=== PATIENT | male | born 1970 | race Caucasian/White ===

== ENCOUNTER 2017-04-15 05:29 | Inpatient (IN) | payer OTHER ==
[2017-04-15 06:31] LABS: Basophils % (Auto) 0.5 % (0.0-1.8); Eosinophils % (Auto) 1.1 % (0.0-4.3); Hematocrit 40.5 % (35.5-45.6); Hemoglobin 13.4 gm/dl (11.8-15.2); Mean Corpuscular HGB Conc 33 % (32-34); Mean Corpuscular Volume 76 fl (84-94); Platelet Count 274 K/mm3 (140-440); Red Blood Count 5.36 M/mm3 (3.65-5.03); Red Cell Distribution Width 17.4 % (13.2-15.2)
[2017-04-15] MEDS ORDERED: NITRO-BID 2% TP ONE (06:32)
[2017-04-15] MEDS ORDERED: MORPHINE IV ONE (06:32)
[2017-04-15] MEDS ORDERED: ZOFRAN IV ONE (06:32)
[2017-04-15] MEDS ORDERED: ASPIRIN PO ONE (06:32)
[2017-04-15 06:35] LABS: Mean Corpuscular Hemoglobin 25 pg (28-32)
[2017-04-15] MEDS ORDERED: NACL ONE (06:43)
[2017-04-15 06:46] LABS: Anion Gap 21 mmol/L; Blood Urea Nitrogen 14 mg/dL (9-20); Calcium 9.7 mg/dL (8.4-10.2); Carbon Dioxide 22 mmol/L (22-30); Chloride 100.7 mmol/L (98-107); Glucose 129 mg/dL (75-100); Potassium 4.1 mmol/L (3.6-5.0); Sodium 140 mmol/L (137-145)
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
[2017-04-15 08:54] LABS: Albumin 4.1 g/dL (3.9-5); Bilirubin,Direct 0.4 mg/dL (0-0.2); Bilirubin,Indirect 0.4 mg/dL; Bilirubin,Total 0.8 mg/dL (0.1-1.2); Total Protein 8.4 g/dL (6.3-8.2)
--- NOTE | 2017-04-15 09:13 | XRay Report ---
ROUTINE CHEST, TWO VIEWS: SOB, pleuritic chest pain. PA and lateral views demonstrate the heart and mediastinal contour to be of normal size and shape. The lungs are clear and fully expanded and the soft tissues and bony structures are normal. IMPRESSION: Normal study.
[2017-04-15 09:20] LABS: Bilirubin,Urine NEG (Negative); Blood,Urine NEG (Negative); Ketones,Urine NEG (Negative); Leukocyte Esterase,Urine NEG (Negative); Mucus,Urine 3+ /HPF; Nitrite,Urine NEG (Negative); Protein,Urine <15 mg/dL mg/dL (Negative); Urobilinogen,Urine < 2.0 mg/dL (<2.0); WBC,Urine < 1.0 /HPF (0.0-6.0)
--- NOTE | 2017-04-15 10:13 | Cat Scan Report ---
CTA chest, abdomen, pelvis: Pleuritic chest pain, SOB, nausea and vomiting with abnormal pancreas enzymes. Following IV contrast administration images are performed transversely through the chest using pulmonary embolus protocol. Transverse images are continued through the abdomen and pelvis. AP and lateral 2-D reconstruction chest and abdominal images are obtained in addition to 3-D chest image. Opacification of the pulmonary arteries is not optimal but adequate to exclude any obvious filling defects. The pulmonary veins and thoracic aorta are well-opacified and appear unremarkable. No filling defects identified in the cardiac chambers. No hilar or mediastinal adenopathy. The central airways are patent. There are bilateral bibasilar areas of scarring or linear atelectasis. The remainder the lungs are clear. No effusion nor pleural pathology identified. Images through the lower chest and abdomen demonstrate the presence of a non-reduced hiatus hernia surrounded by a large volume of fat which appears to be extending into the chest through a large posterior diaphragmatic defect. Spleen are unremarkable as is the remainder of the stomach. The gallbladder is filled with a mild increased degree of density with what appear to be a couple of cysts tiny gas density bubbles in the proximal gallbladder. The gallbladder is not otherwise remarkable. The CBD has a normal diameter. Images of the pancreas are unremarkable. Evaluation of renal calculi is difficult do to the presence of contrast. No renal nor adrenal abnormalities noted. The bowel is unopacified but appears grossly unremarkable. There may be some diverticula a in the ascending colon. The appendix is visualized and unremarkable. No inflammatory abdominal findings and fluid collections nor free air. Impressions: 1. No pulmonary embolus. 2. Bibasilar atelectasis/scarring. 3. Large diaphragmatic hernia with apparent herniation of mesenteric fat surrounding the gastric hernia. 4. Unexplained gas in gallbladder. Possibility of inflammation is raised. Evaluation with ultrasound may be helpful.
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
[2017-04-15] MEDS ORDERED: MILK OF MAGNESIA PO PRN (13:18)
[2017-04-15] MEDS ORDERED: ZOFRAN IV PRN (13:18)
[2017-04-15] MEDS ORDERED: TYLENOL PO PRN (13:18)
[2017-04-15] MEDS ORDERED: DULCOLAX PR PRN (13:18)
[2017-04-15] MEDS ORDERED: PROVENTIL IH PRN (13:18)
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
--- NOTE | 2017-04-15 14:41 | Ultrasound Report ---
FINAL REPORT EXAM: US ABDOMEN LIMITED HISTORY: elevated LFTs, elevated lipase TECHNIQUE: Grayscale and color doppler ultrasound imaging of the right upper quadrant was performed. PRIORS: None. FINDINGS: Liver: The liver is normal in echogenicity. No focal hepatic lesions or intrahepatic biliary ductal dilation. Gallbladder/Biliary system: Cholelithiasis is seen. No gallbladder wall thickening or pericholecystic fluid. The common bile duct measures 2.4 millimeters. Right kidney: The right kidney is normal in echogenicity without hydronephrosis, cyst, mass or calcification. The right kidney measures 10.2 x 6.0 x 4.9 centimeters. Pancreas: The visualized portions of the pancreas demonstrate no focal lesion. Aorta/IVC: The visualized portions of the abdominal aorta and IVC are normal in caliber. Free fluid: None. IMPRESSION: Cholelithiasis without evidence of acute cholecystitis.
--- NOTE | 2017-04-16 06:57 | Event Note ---
Date: 04/16/17 u/s does not suggest acute cholecystitis, afebrile, HIDA today, if GB visualizes , patient can be feed and sent home and followed as outpatient.
[2017-04-16] MEDS ORDERED: WATER FOR INJ (PF) 10 ML ONE (08:45)
[2017-04-16] MEDS ORDERED: KINEVAC IV ONE ×2 (08:45→09:00)
[2017-04-16] MEDS ORDERED: WATER FOR INJ (PF) IV ONE (09:00)
--- NOTE | 2017-04-16 11:23 | Nuclear Medicine Report ---
Hepatobiliary scan with ejection fraction. History: Abdominal pain. Findings: Hepatic, gallbladder, and small bowel activity are normal. The ejection fraction was performed after the intravenous injection of 1.9 mcg of Kinevac. The ejection fraction measures 19% which is abnormally low. Impression: Abnormal ejection fraction consistent with biliary dyskinesia versus chronic cholecystitis.
--- NOTE | 2017-04-16 11:24 | Event Note ---
Date: 04/16/17 HIDA scan demonstrates promt visualization of GB, passage of contrast into duodenum, patient does not have accute cholecystitis, question of air in gallbladder wall represents cholesterol stones, patient can be fed and sent home , I can f/u as outpatient to address biliary dyskinesia, (EF 19 %), not an emergency- elective lap aiden.No need for antibiotics, lipase elevation noted but I am unclear as to etiology of it. A low fat diet is a good idea for 2 weeks if patient will comply.
--- NOTE | 2017-04-16 12:52 | Progress Note ---
Assessment and Plan Assessment and plan: Right upper quadrant abdominal pain. CT abdomen suggested gall bladder disease. HIDA scan showed dyskinesia. Patient evaluated by surgeon. Biliary diskinesia. Follow with Dr. Ramirez, Surgeon as an outpatient Acute pancreatitis with elevated lippase level. repeat lipase level. iv fluids, analgesics Transaminitis. Repeat LFT. Obtain alcohol level Obesity. I counseled him on diet and exercise to lose weight Full code status DVT prophylaxis with SCDs History Interval history: Right upper quadrant abdominal pain, no fever Hospitalist Physical - Physical exam Narrative exam: Gen Appearance: No acute distress, obese HEENT: normocephalic, atraumatic Neck: supple, no JVD Lungs: clear to auscultation bilaterally, no crackles or wheezes Heart: S1 and S2 regular, no murmurs or gallop Abdomen: Soft , tender RUQ, no rebound tenderness, no guarding. Normal bowel sounds Extremity: No edema, clubbing or cyanosis Neuro : Awake, alert, oriented x 3, moves all extremities - Constitutional Vitals: Temp Pulse Resp BP Pulse Ox 98.4 F 78 15 119/86 98 04/16/17 06:52 04/16/17 06:52 04/16/17 06:52 04/16/17 06:52 04/16/17 10:00 General appearance: Present: no acute distress, well-nourished Results - Labs CBC & Chem 7: 04/16/17 12:23 04/16/17 14:33 Labs: Laboratory Last Values WBC 11.0 K/mm3 (4.5-11.0) 04/15/17 06:13 RBC 5.36 M/mm3 (3.65-5.03) H 04/15/17 06:13 Hgb 13.4 gm/dl (11.8-15.2) 04/15/17 06:13 Hct 40.5 % (35.5-45.6) 04/15/17 06:13 MCV 76 fl (84-94) L 04/15/17 06:13 MCH 25 pg (28-32) L 04/15/17 06:13 MCHC 33 % (32-34) 04/15/17 06:13 RDW 17.4 % (13.2-15.2) H 04/15/17 06:13 Plt Count 274 K/mm3 (140-440) 04/15/17 06:13 Lymph % (Auto) 16.4 % (13.4-35.0) 04/15/17 06:13 [place] % (Auto) 9.1 % (0.0-7.3) H 04/15/17 06:13 Eos % (Auto) 1.1 % (0.0-4.3) 04/15/17 06:13 Baso % (Auto) 0.5 % (0.0-1.8) 04/15/17 06:13 Lymph # 1.8 K/mm3 (1.2-5.4) 04/15/17 06:13 [place] # 1.0 K/mm3 (0.0-0.8) H 04/15/17 06:13 Eos # 0.1 K/mm3 (0.0-0.4) 04/15/17 06:13 Baso # 0.1 K/mm3 (0.0-0.1) 04/15/17 06:13 Seg Neutrophils % 72.9 % (40.0-70.0) H 04/15/17 06:13 Seg Neutrophils # 8.0 K/mm3 (1.8-7.7) H 04/15/17 06:13 Sodium 140 mmol/L (137-145) 04/15/17 06:13 Potassium 4.1 mmol/L (3.6-5.0) 04/15/17 06:13 Chloride 100.7 mmol/L (98-107) 04/15/17 06:13 Carbon Dioxide 22 mmol/L (22-30) 04/15/17 06:13 Anion Gap 21 mmol/L 04/15/17 06:13 BUN 14 mg/dL (9-20) 04/15/17 06:13 Creatinine 1.0 mg/dL (0.8-1.5) 04/15/17 06:13 Estimated GFR > 60 ml/min 04/15/17 06:13 BUN/Creatinine Ratio 14.00 % 04/15/17 06:13 Glucose 129 mg/dL (75-100) H 04/15/17 06:13 Calcium 9.7 mg/dL (8.4-10.2) 04/15/17 06:13 Total Bilirubin 0.80 mg/dL (0.1-1.2) 04/15/17 06:13 Direct Bilirubin 0.4 mg/dL (0-0.2) H 04/15/17 06:13 Indirect Bilirubin 0.4 mg/dL 04/15/17 06:13 AST 111 units/L (5-40) H 04/15/17 06:13 ALT 72 units/L (7-56) H 04/15/17 06:13 Alkaline Phosphatase 176 units/L (35-129) H 04/15/17 06:13 Troponin T < 0.010 ng/mL (0.00-0.029) 04/15/17 11:27 Total Protein 8.4 g/dL (6.3-8.2) H 04/15/17 06:13 Albumin 4.1 g/dL (3.9-5) 04/15/17 06:13 Albumin/Globulin Ratio 1.0 % 04/15/17 06:13 Lipase 1962 units/L (13-60) H 04/15/17 06:13 Urine Color [place] (Yellow) 04/15/17 08:55 Urine Turbidity Clear (Clear) 04/15/17 08:55 Urine pH 6.0 (5.0-7.0) 04/15/17 08:55 Ur Specific [place] 1.060 (1.003-1.030) H 04/15/17 08:55 Urine Protein <15 mg/dl mg/dL (Negative) 04/15/17 08:55 Urine Glucose (UA) Neg mg/dL (Negative) 04/15/17 08:55 Urine Ketones Neg mg/dL (Negative) 04/15/17 08:55 Urine Blood Neg (Negative) 04/15/17 08:55 Urine Nitrite Neg (Negative) 04/15/17 08:55 Urine Bilirubin Neg (Negative) 04/15/17 08:55 Urine Urobilinogen < 2.0 mg/dL (<2.0) 04/15/17 08:55 Ur Leukocyte Esterase Neg (Negative) 04/15/17 08:55 Urine WBC (Auto) < 1.0 /HPF (0.0-6.0) 04/15/17 08:55 Urine RBC (Auto) 2.0 /HPF (0.0-6.0) 04/15/17 08:55 U Epithel Cells (Auto) < 1.0 /HPF (0-13.0) 04/15/17 08:55 Urine Mucus 3+ /HPF 04/15/17 08:55
[2017-04-16 13:42] LABS: Hematocrit 41.1 % (35.5-45.6); Hemoglobin 12.9 gm/dl (11.8-15.2); Mean Corpuscular HGB Conc 31 % (32-34); Mean Corpuscular Hemoglobin 24 pg (28-32); Mean Corpuscular Volume 77 fl (84-94); Platelet Count 248 K/mm3 (140-440); Red Blood Count 5.33 M/mm3 (3.65-5.03); Red Cell Distribution Width 17.7 % (13.2-15.2); White Blood Count 8.1 K/mm3 (4.5-11.0)
[2017-04-16 13:57] LABS: Alanine Aminotransferase 196 units/L (7-56); Albumin 3.7 g/dL (3.9-5); Albumin/Globulin Ratio 0.9 %; Alkaline Phosphatase 207 units/L (35-129); Anion Gap 19 mmol/L; BUN/Creatinine Ratio 11.25; Blood Urea Nitrogen 9 mg/dL (9-20); Calcium 8.9 mg/dL (8.4-10.2); Carbon Dioxide 25 mmol/L (22-30); Chloride 99.7 mmol/L (98-107); Glucose 89 mg/dL (75-100); Potassium 4.2 mmol/L (3.6-5.0); Sodium 139 mmol/L (137-145); Total Protein 7.7 g/dL (6.3-8.2)
[2017-04-16 15:32] LABS: Alanine Aminotransferase 174 units/L (7-56); Albumin 3.4 g/dL (3.9-5); Albumin/Globulin Ratio 0.9 %; Alkaline Phosphatase 184 units/L (35-129); Anion Gap 16 mmol/L; BUN/Creatinine Ratio 11.11; Blood Urea Nitrogen 10 mg/dL (9-20); Calcium 8.3 mg/dL (8.4-10.2); Carbon Dioxide 25 mmol/L (22-30); Glucose 90 mg/dL (75-100); Potassium 4.3 mmol/L (3.6-5.0); Sodium 138 mmol/L (137-145); Total Protein 7.1 g/dL (6.3-8.2)
[2017-04-16] MEDS ORDERED: D5/0.45NS 1,000 ML IV SCH (16:00)
[2017-04-16 18:21] LABS: Urine Drugs of Abuse Note Disclamer
[2017-04-17 05:57] LABS: Alanine Aminotransferase 126 units/L (7-56); Albumin 3.4 g/dL (3.9-5); Alkaline Phosphatase 173 units/L (35-129); Anion Gap 18 mmol/L; BUN/Creatinine Ratio 11.25; Blood Urea Nitrogen 9 mg/dL (9-20); Calcium 8.3 mg/dL (8.4-10.2); Carbon Dioxide 24 mmol/L (22-30); Chloride 101.8 mmol/L (98-107); Glucose 115 mg/dL (75-100); Sodium 140 mmol/L (137-145); Total Protein 6.7 g/dL (6.3-8.2)
--- NOTE | 2017-04-17 07:00 | Event Note ---
Date: 04/17/17 VSS AF no complaints of abd or chest pain, tolerating diet, benign abd exam, discharge home and I will follow up in my office in one week, recc low fat diet x 2 weeks.
[2017-04-17 07:37] VITALS: BP 121/87
--- NOTE | 2017-04-17 09:12 | Discharge Summary ---
Providers - Providers Date of Admission: 04/15/17 13:18 Date of discharge: 04/17/17 Attending physician: DU DUMONT Primary care physician: SUHA THOMPSON MD Hospitalization Condition: Fair Disposition: DC-01 TO HOME OR SELFCARE - Discharge Diagnoses (1) Elevated LFTs Status: Acute (2) Elevated lipase Status: Acute Exam - Constitutional Vitals: Temp Pulse Resp BP Pulse Ox 98.3 F 69 18 121/87 91 04/17/17 07:33 04/17/17 07:33 04/17/17 07:33 04/17/17 07:33 04/17/17 07:33 Plan Activity: no restrictions Diet: low fat, low cholesterol, low salt Additional Instructions: 1.Follow up with PCP or [facility] in 1 week. 2.Follow up with Dr. Ramirez in 1 week. 3.Follow up elevated liver function tests with PCP Follow up with: PRIMARY MD DONNA [Primary Care Provider] - 3-5 Days
== END 2017-04-17 09:00 | disposition left against medical advice (07) | DRG 313 ==
LOC: ED 05:29 → 3A 13:18
PROVIDERS: ADMIT Internal Medicine; ATTEND Internal Medicine
DX: R07.9 Chest pain, unspecified (principal); R79.89 Other specified abnormal findings of blood chemistry; E66.9 Obesity, unspecified; K83.8 Other specified diseases of biliary tract; Z68.30 Body mass index [BMI] 30.0-30.9, adult; Z71.3 Dietary counseling and surveillance
CPT/HCPCS: 36415; 71020; 71275; 74177; 76705; 78227; 80048; 80053; 80074; 80307; 80320; 81001; 83690; 84484; 85025; 85027; 93005; 93010; 96374; 96375; A9537; G0480; J2270; J2405; J2805; Q9967

== ENCOUNTER 2017-10-07 02:47 | Emergency (ER) | payer SELFPAY ==
[2017-10-07 02:52] VITALS: BP 141/91
[2017-10-07] MEDS ORDERED: ZOFRAN ONE (03:21)
[2017-10-07] MEDS ORDERED: TORADOL ONE (03:22)
[2017-10-07] MEDS ORDERED: ZOFRAN IV ONE (03:32)
[2017-10-07] MEDS ORDERED: TORADOL IV ONE (03:33)
[2017-10-07 03:46] LABS: Basophils # (Auto) 0.1 K/mm3 (0.0-0.1); Basophils % (Auto) 0.6 % (0.0-1.8); Eosinophils # (Auto) 0.4 K/mm3 (0.0-0.4); Eosinophils % (Auto) 3.5 % (0.0-4.3); Hematocrit 41.9 % (35.5-45.6); Hemoglobin 13.7 gm/dl (11.8-15.2); Lymphocytes % (Auto) 27.4 % (13.4-35.0); Mean Corpuscular HGB Conc 33 % (32-34); Mean Corpuscular Volume 78 fl (84-94); Monocytes # (Auto) 0.8 K/mm3 (0.0-0.8); Monocytes % (Auto) 7.5 % (0.0-7.3); Platelet Count 297 K/mm3 (140-440); Red Blood Count 5.38 M/mm3 (3.65-5.03); Red Cell Distribution Width 17.6 % (13.2-15.2)
[2017-10-07 03:50] LABS: Mean Corpuscular Hemoglobin 26 pg (28-32)
[2017-10-07 04:13] LABS: Alanine Aminotransferase 136 units/L (7-56); Albumin 3.9 g/dL (3.9-5); BUN/Creatinine Ratio 13; Blood Urea Nitrogen 12 mg/dL (9-20); Calcium 8.9 mg/dL (8.4-10.2); Hemolysis Index 24
[2017-10-07 05:43] LABS: Lipase 1531 units/L (13-60)
== END 2017-10-07 05:46 | disposition left against medical advice (07) ==
LOC: ED 02:47
DX: R10.9 Unspecified abdominal pain (principal); Z53.21 Procedure and treatment not carried out due to patient leaving prior to being seen by health care provider
CPT/HCPCS: 36415; 80053; 83690; 85025; J1885; J2405